=== PATIENT | male | born 1965 | race Caucasian/White ===

== ENCOUNTER 2017-04-10 21:31 | Emergency (ER) | END 2017-04-11 05:20 | disposition home or self-care (01) ==

== ENCOUNTER 2017-11-02 10:51 | Observation (INO) | END 2017-11-03 17:08 | disposition home or self-care (01) ==

== ENCOUNTER 2018-07-25 11:19 | Emergency (ER) | payer MEDICARE, OTHER ==
[~2018-07-25] VITALS: Wt 96.0 kg
[~2018-07-25 11:19] MED LIST: ADAL40PE SQ; ALLO300T2 PO; ASPI81TA52 PO; ATOR40TA68 PO; CARV12.579 PO; CELE200C PO; CIPR500T4 PO; DILT240C79 PO; FIORICET PO; GABA100C14 PO; NITR-58 PO; OLME40TA13 PO; PRED5TAB PO; SUMA100T3 PO; TRAM50TA PO
[2018-07-25] MEDS ORDERED: DIPHENHYDRAMINE 50 MG INJ IV STA (12:17)
[2018-07-25] MEDS ORDERED: HYDROmorphONE 1 MG/ML SYG IV STA (12:17)
[2018-07-25] MEDS ORDERED: PROCHLORPERAZINE 10 MG INJ IV STA (12:17)
--- NOTE | 2018-07-25 12:34 | ERD ---
ER Documentation Chief Complaint Chief Complaint has hx migrane, has xaviermorenita d epidural 2 weeks ago, also wants to have hemo HPI This is a 53-year-old male with a chronic history of migraine headaches who receives Botox injections every 3 months into his cervical musculature to stop his headaches. He states that he received a Botox injection about a week ago but it has not helped. He is also had cervical facet injections in the past, last injection was done in mid June. The patient states he is complaining of a typical migraine headache with pain to the frontal and vertex that is throbbing, worse with positional change and has phonophobia but no photophobia. He says his headache is exactly like prior headaches. He also is complaining of hemorrhoid exacerbation is chronic hemorrhoids externally and takes Preparation H with lidocaine and does sits baths. He has no rectal bleeding. ROS All systems reviewed and are negative except as per history of present illness. Medications Home Meds Active Scripts Ibuprofen* (Motrin*) 800 Mg Tab, 800 MG PO Q6H PRN for PAIN AND OR ELEVATED TEMP, #30 TAB Prov:ANGELA JARVIS DO 07/25/18 Hydrocodone/Acetaminophen (Temple 10-325 Tablet) 1 Each Tablet, 1 TAB PO Q6H PRN for PAIN, #16 TAB Prov:ANGELA JARVIS DO 07/25/18 Nitrofurantoin Monohyd Macrocr* (Macrobid*) 100 Mg Capsr, 100 MG PO BID, #14 CAP Prov:REGCHANDLER FRASER 11/05/17 Atorvastatin* (Atorvastatin*) 40 Mg Tablet, 40 MG PO QHS, #30 TAB Prov:REGCHANDLER FRASER 11/03/17 Ciprofloxacin Hcl* (Ciprofloxacin Hcl*) 500 Mg Tablet, 500 MG PO BID, #10 TAB Prov:REGCHANDLER FRASER 11/03/17 Acetamin/Butalbital/Caffeine* (Fioricet*) [id number] Tab, 2 TAB PO Q4H PRN for cephalgia, #30 TAB Prov:CHANDLER MIX 11/03/17 Sumatriptan Succinate* (Imitrex*) 100 Mg Tablet, 100 MG PO BID PRN for MIGRAINE HEADACHE, #30 TAB May repeat after 2 hours if needed; MAX 200 mg/24 hours Prov:REGBRIA,CHANDLER 11/03/17 Celecoxib* (Celebrex*) 200 Mg Capsule, 200 MG PO BID, #60 CAP Prov:BOOM MIXNELL 11/03/17 Gabapentin* (Gabapentin*) 100 Mg Capsule, 100 MG PO QHS, #90 CAP Prov:BOOM MIXNELL 11/03/17 Aspirin (Low Dose Aspirin) 81 Mg Tablet.dr, 81 MG PO DAILY, #30 TAB Prov:BOOM MIXNELL 11/03/17 Olmesartan Medoxomil (Benicar) 40 Mg Tablet, 40 MG PO DAILY, #30 TAB Prov[facility] 11/03/17 Carvedilol* (Carvedilol*) 12.5 Mg Tablet, 12.5 MG PO BID, #60 TAB Prov:[facility] 11/03/17 Diltiazem Hcl* (Cardizem CD*) 240 Mg Cap.sr.24h, 240 MG PO DAILY, #30 CAP Prov:MARIA DEL ROSARIOCHANDLER 11/03/17 Reported Medications Tramadol Hcl* (Ultram*) 50 Mg Tablet, 50 MG PO BID PRN for PAIN, TAB 11/02/17 Prednisone* (Prednisone*) 5 Mg Tab, 5 MG PO DAILY, TAB 11/02/17 Allopurinol* (Allopurinol*) 300 Mg Tablet, 300 MG PO DAILY, TAB 11/02/17 Adalimumab (Humira) 40 Mg/0.8 Ml Pen.ij.kit, 40 MG SQ EVERY OTHER TUEDAY 11/02/17 Allergies Allergies: Coded Allergies: No Known Allergy (Verified , 07/25/18) PMhx/Soc History of Surgery: Yes Anesthesia Reaction: No Hx Neurological Disorder: No Hx Respiratory Disorders: No Hx Cardiac Disorders: Yes (htn) Hx Psychiatric Problems: No Hx Miscellaneous Medical Probl: Yes (gout , rhomatoid arthritis) Hx Alcohol Use: No Hx Substance Use: No Hx Tobacco Use: No Smoking Status: Never smoker FmHx Family History: No coronary disease Physical Exam Vitals Vital Signs Date Temp Pulse Resp B/P (MAP) Pulse Ox O2 O2 Flow FiO2 Time Delivery Rate 07/25/18 98.9 88 18 180/107 99 11:26 (131) Physical Exam Const: Well-developed, well-nourished Head: Atraumatic, normocephalic Eyes: Normal Conjunctiva, PERRLA, EOMI, normal sclera, no nystagmus ENT: Normal External Ears, Nose and Mouth, moist mucus membranes. Neck: Full range of motion. No meningismus, no lymphadenopathy. Resp: Clear to auscultation bilaterally, no wheezing, rhonchi, rales Cardio: Regular rate and rhythm, no murmurs, S1 S2 present Abd: Soft, non tender x 4, non distended. Normal bowel sounds, no guarding or rebound, no pulsitile abdominal masses or bruits Skin: No petechiae or rashes, no ecchymosis , no maculopapular rash Back: No midline or flank tenderness Ext: No cyanosis, or edema, FROM x 4, normal inspection, neurovascularly intact x 4 Neur: Awake and alert, STR 5/5 x 4, sensation intact x 4, no focal findings, cerebellum intact Psych: Normal Mood and Affect Results 24 hrs Current Medications Medications Dose Sig/Iqra Start Time Status Last (Trade) Ordered Route PRN Stop Time Admin Dose Reason Admin 10 mg ONCE STAT 07/25/18 DC 07/25/18 Prochlorperaz IV 12:17 07/25/18 12:34 ine 12:19 (Compazine Inj) 1 mg ONCE STAT 07/25/18 DC 07/25/18 Hydromorphone IV 12:17 07/25/18 12:35 HCl 12:19 (Dilaudid) 25 mg ONCE STAT 07/25/18 DC 07/25/18 Diphenhydrami IV 12:17 07/25/18 12:33 ne HCl 12:19 (Benadryl) Procedures/MDM Patient received migraine cocktail and feels much better. He has no pain at all anymore. Will discharge home with Temple Motrin he has Anusol cream with lidocaine he will follow-up with proctology/colorectal Departure Diagnosis: Primary Impression: Migraine headache Migraine type: unspecified Status migrainosus presence: without status migrainosus Intractability: not intractable Qualified Codes: G43.909 - Migraine, unspecified, not intractable, without status migrainosus Additional Impression: External hemorrhoids Condition: Stable ANGELA JARVIS DO July 25, 2018 12:34
[2018-07-25] MEDS ORDERED: HYDR-3980 PO (14:20)
[2018-07-25] MEDS ORDERED: IBUP800T48 PO (14:20)
[2018-07-25 14:38] VITALS: BP 159/89; PULSE 79; RESP 18
[2018-07-25] MEDS ORDERED: POLY17PO6 PO (14:56)
== END 2018-07-25 14:52 | disposition home or self-care (01) ==
LOC: E/R 11:19
DX: G43.909 Migraine, unspecified, not intractable, without status migrainosus (principal); K64.4 Residual hemorrhoidal skin tags; I10 Essential (primary) hypertension; R40.2142 Coma scale, eyes open, spontaneous, at arrival to emergency department; R40.2252 Coma scale, best verbal response, oriented, at arrival to emergency department; R40.2362 Coma scale, best motor response, obeys commands, at arrival to emergency department; Z79.82 Long term (current) use of aspirin
CPT/HCPCS: 96374; 96375; 99284; J0780; J1170; J1200